=== PATIENT | female | born 1945 | race Caucasian/White ===

== ENCOUNTER 2018-03-19 08:09 | Emergency (ER) | payer OTHER, BC ==
--- NOTE | 2018-03-19 08:44 | EDPHYS ---
Physician Documentation [facility] Name: Claudette Epps Age: 72 yrs Sex: Female : 1945 Arrival Date: 03/19/2018 Time: 08:13 Bed 20 Private MD: out of town, doctor ED Physician Manuel Shelton HPI: 03/19 08:40 This 72 yrs old Female presents to ER via Ambulatory with complaints of Eye gs Pain. 08:40 The patient is experiencing redness. Onset: The symptoms/episode began/occurred gs acutely, just prior to arrival. Duration: the symptoms are continuous. Aggravated by blinking. Associated signs and symptoms: Pertinent negatives: chills, ear ache, fever. Severity of symptoms: At their worst the symptoms were moderate in the emergency department the symptoms are unchanged. The patient has not experienced similar symptoms in the past. The patient has not recently seen a physician. Historical: - Allergies: 08:36 No Known Allergies; ss - Home Meds: 08:36 glipizide 5 mg Oral tab 1 tab 2 times per day [Active]; enalapril maleate 10 mg Oral ss tab 1 tab once daily [Active]; - PMHx: 08:36 Diabetes - NIDDM; Hypertension; ss - Immunization history:: Adult Immunizations up to date. - Social history:: Smoking status: Patient/guardian denies using tobacco. - Ebola Screening: : Patient denies exposure to infectious person Patient denies travel to an Ebola-affected area in the 21 days before illness onset. ROS: 08:40 All other systems are negative. gs Exam: 08:40 Constitutional: This is a well developed, well nourished patient who is awake, alert, gs and in no acute distress. Head/Face: Normocephalic, atraumatic. ENT: Nares patent. No nasal discharge, no septal abnormalities noted. Tympanic membranes are normal and external auditory canals are clear. Oropharynx with no redness, swelling, or masses, exudates, or evidence of obstruction, uvula midline. Mucous membranes moist. Neck: Trachea midline, no thyromegaly or masses palpated, and no cervical lymphadenopathy. Supple, full range of motion without nuchal rigidity, or vertebral point tenderness. No Meningismus. 08:40 Eyes: Periorbital structures: appear normal, Pupils: no acute changes, Extraocular movements: no acute changes, Conjunctiva: subconjunctival hemorrhage(s), seen in the right eye, at 3 o'clock. Vital Signs: 08:36 BP 157 / 91; Pulse 73; Resp 16; Temp 97.9(TE); Pulse Ox 95% on R/A; Weight 72.57 kg; ss Height 5 ft. 3 in. (160.02 cm); Pain 0/10; 08:36 Body Mass Index 28.34 (72.57 kg, 160.02 cm) ss MDM: 08:38 Patient medically screened. 08:40 Data reviewed: vital signs, nurses notes. Counseling: I had a detailed discussion with gs the patient and/or guardian regarding: the historical points, exam findings, and any diagnostic results supporting the discharge/admit diagnosis, the need for outpatient follow up. Response to treatment: There is no appreciated change of the patient's symptoms at this time, and as a result, I will discharge patient. Administered Medications: No medications were administered Disposition: 03/19/18 08:43 Discharged to Home. Impression: Conjunctival hemorrhage, right eye. - Condition is Stable. - Discharge Instructions: Subconjunctival Hemorrhage. - Medication Reconciliation Form, Thank You Letter, Antibiotic Education, Prescription Opioid Use form. - Follow up: Jose Henning MD; When: 2 - 3 days; Reason: Re-evaluation by your physician. Signatures: Vicente Talavera LVN LVN Chula Mcfarlane RN RN Manuel Shelton MD MD Corrections: (The following items were deleted from the chart) 08:59 08:43 03/19/2018 08:43 Discharged to Home. Impression: Conjunctival hemorrhage, right em eye. Condition is Stable. Forms are Medication Reconciliation Form, Thank You Letter, Antibiotic Education, Prescription Opioid Use. Follow up: Jose Henning; When: 2 - 3 days; Reason: Re-evaluation by your physician. gs
--- NOTE | 2018-03-19 08:44 | ER ---
Nurse's Notes [facility] Name: Claudette Epps Age: 72 yrs Sex: Female : 1945 Arrival Date: 03/19/2018 Time: 08:13 Bed 20 Private MD: out of town, doctor Diagnosis: Conjunctival hemorrhage, right eye Presentation: 03/19 08:32 Presenting complaint: Patient states: redness to R eye sclera that being around 0700 ss this am. Pt reports that she felt something different about her eye, and when she looked, she saw the redness. PT denies pain. Transition of care: patient was not received from another setting of care. Mechanism of Injury: No Mechanism of Injury. The patient denies any loss of vision. Onset of symptoms was March 19, 2018. Risk Assessment: Do you want to hurt yourself or someone else? Patient reports no desire to harm self or others. Initial Sepsis Screen: Does the patient meet any 2 criteria? No. Patient's initial sepsis screen is negative. Does the patient have a suspected source of infection? No. Patient's initial sepsis screen is negative. Care prior to arrival: None. 08:32 Method Of Arrival: Ambulatory ss 08:32 Acuity: GIBSON 5 ss Historical: - Allergies: 08:36 No Known Allergies; ss - Home Meds: 08:36 glipizide 5 mg Oral tab 1 tab 2 times per day [Active]; enalapril maleate 10 mg Oral ss tab 1 tab once daily [Active]; - PMHx: 08:36 Diabetes - NIDDM; Hypertension; ss - Immunization history:: Adult Immunizations up to date. - Social history:: Smoking status: Patient/guardian denies using tobacco. - Ebola Screening: : Patient denies exposure to infectious person Patient denies travel to an Ebola-affected area in the 21 days before illness onset. Screenin:45 Abuse screen: Denies threats or abuse. Nutritional screening: No deficits noted. em Tuberculosis screening: No symptoms or risk factors identified. Fall Risk None identified. Assessment: 08:45 General: Appears in no apparent distress. comfortable, Behavior is calm, cooperative. em Pain: Denies pain. Neuro: Level of Consciousness is awake, alert, obeys commands, Oriented to person, place, time, situation. Cardiovascular: Denies chest pain, Patient's skin is warm and dry. Respiratory: Airway is patent Respiratory effort is even, unlabored, Respiratory pattern is regular, symmetrical. EENT: Eyes clear. Sclera/Cornea are reddened in outer aspect of conjuctiva of right eye and inner aspect of conjuctiva of right eye Denies pain blurred vision photophobia. Derm: Skin is intact, Skin is pink, warm \T\ dry. Musculoskeletal: Range of motion: intact in all extremities. 09:00 General: The previous assessment is accurate, call light remains within reach. . Vital Signs: 08:36 BP 157 / 91; Pulse 73; Resp 16; Temp 97.9(TE); Pulse Ox 95% on R/A; Weight 72.57 kg; ss Height 5 ft. 3 in. (160.02 cm); Pain 0/10; 08:36 Body Mass Index 28.34 (72.57 kg, 160.02 cm) ED Course: 08:13 Patient arrived in ED. dl4 08:14 out of town, doctor is Private Physician. dl4 08:27 Manuel Shelton MD is Attending Physician. 08:33 Vicente Talavera LVN is Primary Nurse. em 08:34 Triage completed. 08:36 Arm band placed on right wrist. 08:43 Jose Henning MD is Referral Physician. gs 08:45 Patient has correct armband on for positive identification. Bed in low position. Call em light in reach. Adult w/ patient. 08:45 No provider procedures requiring assistance completed. Patient did not have IV access em during this emergency room visit. Administered Medications: No medications were administered Outcome: 08:43 Discharge ordered by . 08:58 Discharged to home ambulatory, with family. em 08:58 Condition: good 08:58 Discharge instructions given to patient, Instructed on discharge instructions, follow up and referral plans. Demonstrated understanding of instructions, follow-up care. 08:59 Patient left the ED. em Signatures: Vicente Talavera LVN LVN em Chula Harrell, BRANT RN Manuel Shelton MD MD gs Luna, David dl4 Corrections: (The following items were deleted from the chart) 08:59 08:45 EENT: Eyes clear. Sclera/Cornea are reddened in outer aspect of conjuctiva of em right eye and inner aspect of conjuctiva of right eye em
== END 2018-03-19 08:59 | disposition home or self-care (01) ==
LOC: ER 08:09
DX: H11.31 Conjunctival hemorrhage, right eye (principal); I10 Essential (primary) hypertension; E11.9 Type 2 diabetes mellitus without complications
CPT/HCPCS: 99281